=== PATIENT | male | born 1975 | race Caucasian/White ===

== ENCOUNTER 2023-06-14 15:27 | Observation (INO) | payer OTHER ==
[~2023-06-14] VITALS: Ht 188 cm; Wt 56.7 kg
[2023-06-14 15:34] VITALS: BP 122/78; PULSE 99; RESP 18; TEMP 97.3; O2SAT 98
[2023-06-14] MEDS: NACL 0.9% 1,000 ML IV ONE (16:34)
[2023-06-14 16:45] VITALS: O2SAT 97
[2023-06-14 16:46] LABS: BASOPHILS # (AUTO) 0.1 K/uL (0.00-0.22); BASOPHILS % (AUTO) 1.1 % (0.0-2.0); EOSINOPHILS % (AUTO) 0.5 % (0.0-4.0); HEMATOCRIT 40.5 % (36-52); HEMOGLOBIN 14.2 g/dL (12.0-18.0); LYMPHOCYTES # (AUTO) 1.6 K/uL (2.0-11.5); MEAN CORPUSCULAR HEMOGLOBIN 34 pg (27-31); MEAN CORPUSCULAR HGB CONC 35 g/dL (33-37); MEAN CORPUSCULAR VOLUME 97.6 fL (80-94); MONOCYTES # (AUTO) 0.3 K/uL (0.8-1.0); MONOCYTES % (AUTO) 5.7 % (1.7-9.3); NEUTROPHILS # (AUTO) 3.1 K/uL (1.8-7.7); NEUTROPHILS % (AUTO) 60.7 % (42.2-75.2); PLATELET COUNT (AUTO) 80 K/uL (140-450); RED BLOOD CELL COUNT(AUTO) 4.15 MIL/uL (4.20-6.10); RED CELL DISTRIBUTION WIDTH 13.5 % (11.6-13.7); WHITE BLOOD COUNT (AUTO) 5.1 K/uL (4.8-10.8)
[2023-06-14 16:58] LABS: ANION GAP 16.9 (8-16); CALCIUM 8.4 mg/dL (8.5-10.1); CARBON DIOXIDE 24.3 mmol/L (21-32); CREATININE 0.8 mg/dL (0.6-1.3); POTASSIUM 3.2 mmol/L (3.5-5.1)
[2023-06-14 17:04] LABS: ALANINE AMINOTRANSFERASE 57 U/L (12-78); ALBUMIN 4.2 g/dL (3.4-5.0); ALKALINE PHOSPHATASE 74 U/L (50-136); ASPARTATE AMINOTRANSFERASE 84 U/L (15-37); BILIRUBIN,DIRECT 0.3 mg/dL (0.0-0.3); TOTAL PROTEIN, SERUM 6.8 g/dL (6.4-8.2)
[2023-06-14] MEDS: ONDANSETRON 4 MG/2 ML VIAL IVP ONE (17:06)
[2023-06-14] MEDS: LORazepam 2 MG/ML VIAL IVP ONE (17:07)
[2023-06-14] MEDS: chlordiazePOXIDE 25 MG CAP PO SCH (17:20)
[2023-06-14] MEDS ORDERED: MAGNESIUM OXIDE 400 MG TAB PO PRN (18:20)
[2023-06-14] MEDS ORDERED: POTASSIUM CHLORIDE 10 MEQ TABER PO PRN (18:20)
[2023-06-14] MEDS ORDERED: KCL 20 MEQ IN 100 mL PREMIX 200 ML IV PRN (18:20)
[2023-06-14] MEDS ORDERED: ACETAMINOPHEN 325 MG TAB PO PRN (18:20)
[2023-06-14] MEDS: NACL 0.9% 1,000 ML IV SCH (18:53)
[2023-06-14] MEDS: ONDANSETRON 4 MG/2 ML VIAL IVP PRN (20:48)
[2023-06-14] MEDS: MORPHINE SULFATE 4 MG/ML SYR IVP PRN (20:49)
[2023-06-14] MEDS ORDERED: levETIRAcetam 100 MG/ML VIAL IV ONE (21:08)
[2023-06-14] MEDS: levETIRAcetam 1,000 MG in NACL 0.9% 100 ML IV SCH (21:22)
[2023-06-14] MEDS: HYDROcodone/APAP 5/325 MG 1 TAB TAB PO PRN (23:13)
[2023-06-14] MEDS: LORazepam 1 MG TAB PO PRN (23:16)
[2023-06-15] MEDS: DIAZEPAM PFS 10 MG/2 ML SYR IVP PRN (00:46)
[2023-06-15 06:12] LABS: BASOPHILS % (AUTO) 1.1 % (0.0-2.0); EOSINOPHILS # (AUTO) 0.1 K/uL (0-0.4); EOSINOPHILS % (AUTO) 2.4 % (0.0-4.0); HEMATOCRIT 39.2 % (36-52); HEMOGLOBIN 13.6 g/dL (12.0-18.0); LYMPHOCYTES # (AUTO) 1.6 K/uL (2.0-11.5); LYMPHOCYTES % (AUTO) 38.8 % (20.5-51.1); MEAN CORPUSCULAR HEMOGLOBIN 34 pg (27-31); MEAN CORPUSCULAR HGB CONC 35 g/dL (33-37); MONOCYTES # (AUTO) 0.2 K/uL (0.8-1.0); MONOCYTES % (AUTO) 5.1 % (1.7-9.3); NEUTROPHILS # (AUTO) 2.1 K/uL (1.8-7.7); NEUTROPHILS % (AUTO) 52.6 % (42.2-75.2); PLATELET COUNT (AUTO) 65 K/uL (140-450); RED CELL DISTRIBUTION WIDTH 13.6 % (11.6-13.7)
[2023-06-15 06:35] LABS: ANION GAP 14.9 (8-16); CALCIUM 7.9 mg/dL (8.5-10.1); CARBON DIOXIDE 26.6 mmol/L (21-32); CREATININE 0.8 mg/dL (0.6-1.3); POTASSIUM 3.5 mmol/L (3.5-5.1)
[2023-06-15] MEDS ORDERED: ROPI0.5T40 PO (07:52)
[2023-06-15] MEDS ORDERED: [UNRECOGNIZED DRUG - CODE] PO (07:52)
[2023-06-15] MEDS ORDERED: ACET-9533 PO (07:52)
[2023-06-15] MEDS ORDERED: ACET-9520 PO (07:52)
[2023-06-15] MEDS ORDERED: ENOXAPARIN 40 MG/0.4 ML SYR SUBQ SCH (09:00)
[2023-06-15] MEDS ORDERED: MEDS-TO-BEDS MC SCH (09:00)
[2023-06-15 09:46] VITALS: BP 118/71; RESP 14; TEMP 97.8; O2SAT 99
[2023-06-15 12:00] VITALS: PULSE 63
[2023-06-15 16:00] VITALS: PULSE 75
== END 2023-06-15 16:45 | disposition left against medical advice (07) ==
LOC: MED 15:27 → MTU 18:16
PROVIDERS: ADMIT Student in an Organized Health Care Education/Training Program; ATTEND Student in an Organized Health Care Education/Training Program
DX: F10.239 Alcohol dependence with withdrawal, unspecified (principal); R56.9 Unspecified convulsions; R53.1 Weakness; E86.1 Hypovolemia; D72.829 Elevated white blood cell count, unspecified; F17.200 Nicotine dependence, unspecified, uncomplicated; Z79.899 Other long term (current) drug therapy
CPT/HCPCS: 36415; 71045; 80048; 80076; 83880; 84484; 85025; 93005; 96361; 96365; 96366; 96375; 96376; 99285; G0378; J1953; J2060; J2270; J2405; J3360

== ENCOUNTER 2023-07-12 19:51 | Emergency (ER) | payer OTHER ==
[~2023-07-12] VITALS: Ht 190.5 cm; Wt 71.7 kg
[~2023-07-12 19:51] MED LIST: ACET-9520 PO; ACET-9533 PO; ROPI0.5T40 PO; [UNRECOGNIZED DRUG - CODE] PO
[2023-07-12 20:23] VITALS: BP 101/68; PULSE 80; RESP 18; TEMP 97.3; O2SAT 99
[2023-07-12 20:34] VITALS: TEMP 97.3
[2023-07-12 21:05] LABS: BASOPHILS # (AUTO) 0.1 K/uL (0.00-0.22); BASOPHILS % (AUTO) 0.9 % (0.0-2.0); EOSINOPHILS % (AUTO) 0.6 % (0.0-4.0); HEMATOCRIT 36.5 % (36-52); LYMPHOCYTES # (AUTO) 1.8 K/uL (2.0-11.5); LYMPHOCYTES % (AUTO) 27.1 % (20.5-51.1); MEAN CORPUSCULAR HEMOGLOBIN 34 pg (27-31); MEAN CORPUSCULAR HGB CONC 36 g/dL (33-37); MEAN CORPUSCULAR VOLUME 96.6 fL (80-94); MONOCYTES # (AUTO) 0.4 K/uL (0.8-1.0); MONOCYTES % (AUTO) 5.9 % (1.7-9.3); NEUTROPHILS # (AUTO) 4.4 K/uL (1.8-7.7); NEUTROPHILS % (AUTO) 65.5 % (42.2-75.2); PLATELET COUNT (AUTO) 148 K/uL (140-450); RED BLOOD CELL COUNT(AUTO) 3.78 MIL/uL (4.20-6.10); RED CELL DISTRIBUTION WIDTH 13.1 % (11.6-13.7); WHITE BLOOD COUNT (AUTO) 6.8 K/uL (4.8-10.8)
[2023-07-12 21:18] LABS: ANION GAP 17.4 (8-16); CALCIUM 8.6 mg/dL (8.5-10.1); CARBON DIOXIDE 25.9 mmol/L (21-32); CREATININE 0.8 mg/dL (0.6-1.3); POTASSIUM 3.3 mmol/L (3.5-5.1)
[2023-07-12 21:24] LABS: ALBUMIN 4.3 g/dL (3.4-5.0); BILIRUBIN,DIRECT 0.6 mg/dL (0.0-0.3); TOTAL BILIRUBIN 1.8 mg/dL (0.0-1.0)
[2023-07-12] MEDS: KETOROLAC 30 MG/ML VIAL IVP ONE (23:22)
[2023-07-12] MEDS: LORazepam 2 MG/ML VIAL IVP ONE (23:24)
[2023-07-12] MEDS: NACL 0.9% 500 ML IV ONE (23:25)
[2023-07-13 00:45] VITALS: BP 107/74; PULSE 83; RESP 12; O2SAT 99
== END 2023-07-13 01:55 | disposition home or self-care (01) ==
LOC: MED 19:51
DX: F10.129 Alcohol abuse with intoxication, unspecified (principal); Y90.9 Presence of alcohol in blood, level not specified
CPT/HCPCS: 36415; 71045; 80048; 80076; 85025; 96374; 96375; 99284; G0482; J1885; J2060; J7030

== ENCOUNTER 2023-10-14 12:16 | Emergency (ER) | payer OTHER ==
[~2023-10-14] VITALS: Ht 185.4 cm; Wt 59.0 kg
[~2023-10-14 12:16] MED LIST changes: -ACET-9520 PO; +CHLO5CAP29 PO; +FOLI1TAB90 PO; +PANT40EC PO; +ROPI0.5T25 PO; -ROPI0.5T40 PO; +THIA100T45 PO; -[UNRECOGNIZED DRUG - CODE] PO
[2023-10-14 12:22] VITALS: BP 92/51; PULSE 81; RESP 18; TEMP 97.3; O2SAT 94
[2023-10-14 13:01] LABS: BASOPHILS # (AUTO) 0.1 K/uL (0.00-0.22); BASOPHILS % (AUTO) 0.7 % (0.0-2.0); EOSINOPHILS % (AUTO) 0.3 % (0.0-4.0); HEMATOCRIT 35.4 % (36-52); HEMOGLOBIN 12.1 g/dL (12.0-18.0); LYMPHOCYTES # (AUTO) 2.2 K/uL (2.0-11.5); LYMPHOCYTES % (AUTO) 27.7 % (20.5-51.1); MEAN CORPUSCULAR HEMOGLOBIN 33 pg (27-31); MEAN CORPUSCULAR HGB CONC 34 g/dL (33-37); MEAN CORPUSCULAR VOLUME 95.7 fL (80-94); MONOCYTES # (AUTO) 0.7 K/uL (0.8-1.0); MONOCYTES % (AUTO) 8.4 % (1.7-9.3); NEUTROPHILS # (AUTO) 4.9 K/uL (1.8-7.7); NEUTROPHILS % (AUTO) 62.9 % (42.2-75.2); PLATELET COUNT (AUTO) 318 K/uL (140-450); RED CELL DISTRIBUTION WIDTH 13.5 % (11.6-13.7); WHITE BLOOD COUNT (AUTO) 7.9 K/uL (4.8-10.8)
[2023-10-14 13:11] LABS: ANION GAP 14.7 (8-16); CALCIUM 8.5 mg/dL (8.5-10.1); CARBON DIOXIDE 25.5 mmol/L (21-32); CREATININE 0.9 mg/dL (0.6-1.3); POTASSIUM 3.2 mmol/L (3.5-5.1)
[2023-10-14] MEDS: NACL 0.9% 2,000 ML IV ONE (13:12)
[2023-10-14 17:35] VITALS: BP 96/62; PULSE 68; RESP 20; TEMP 97.3; O2SAT 100
[2023-10-14] MEDS ORDERED: LORA-476 PO (18:00)
== END 2023-10-14 17:35 | disposition home or self-care (01) ==
LOC: MED 12:16
DX: F10.129 Alcohol abuse with intoxication, unspecified (principal); F11.10 Opioid abuse, uncomplicated; Z79.899 Other long term (current) drug therapy
CPT/HCPCS: 36415; 80048; 85025; 96360; 96361; 99285; G0482; J7030